=== PATIENT | female | born 1985 | race African-American/Black ===

== ENCOUNTER 2020-08-05 13:36 | Emergency (ER) | payer SELFPAY ==
[~2020-08-05] VITALS: Ht 167.6 cm; Wt 105.0 kg
[2020-08-05 15:15] LABS: BASOPHILS % 1.1 % (0.0-2.0); EOSINOPHILS % 0.9 % (0.0-5.0); HEMATOCRIT. 38.9 % (36.0-48.0); HEMOGLOBIN. 13.3 g/dL (12.0-16.0); LYMPHOCYTES % 34.6 % (20.0-50.0); MEAN CORPUSCULAR HEMOGLOBIN 29.3 pg (28.0-32.0); MEAN CORPUSCULAR VOLUME 85.8 fL (81.0-99.0); MEAN PLATELET VOLUME 8.7 fl (7.4-10.4); MONOCYTES % 11.5 % (2.0-8.0); NEUTROPHILS % 51.9 % (40.0-76.0); PLATELET 295 x1000/uL (130-400); RED BLOOD CELL COUNT 4.54 mill/uL (4.2-5.4); RED CELL DISTRIBUTION WIDTH 14.7 % (11.6-14.6)
[2020-08-05 15:20] LABS: CHLORIDE 109 mEq/L (98-107)
[2020-08-05 15:22] LABS: PROTHROMBIN TIME 10.6 sec (9.6-11.0)
[2020-08-05 15:30] LABS: B-HCG QUANTITATIVE 215 mIU/mL (<3)
[2020-08-05 17:00] VITALS: BP 142/94
== END 2020-08-05 17:40 | disposition home or self-care (01) ==
LOC: ER 13:36
DX: O26.891 Other specified pregnancy related conditions, first trimester (principal); O20.9 Hemorrhage in early pregnancy, unspecified; Z3A.01 Less than 8 weeks gestation of pregnancy
CPT/HCPCS: 36415; 76801; 80053; 84702; 85025; 86850; 86900; 99284